=== PATIENT | female | born 1995 | race Caucasian/White ===

== ENCOUNTER 2020-12-26 20:30 | Emergency (ER) | payer BC ==
[~2020-12-26] VITALS: Ht 142.2 cm; Wt 58.0 kg
[2020-12-26] MEDS ORDERED: ONDANSETRON 4MG ODT PO STA (23:36)
[2020-12-26] MEDS ORDERED: HYDROCODONE/ACETAMINOPHEN 5/325MG TABLET PO STA (23:36)
[2020-12-26 23:52] LABS: CLARITY URINE CLEAR (CLEAR); COLOR URINE YELLOW (YELLOW); KETONES URINE TRACE (NEGATIVE); LEUKOCYTE ESTERASE URINE NEGATIVE (NEGATIVE); NITRITE URINE NEGATIVE (NEGATIVE); OCCULT BLOOD URINE NEGATIVE (NEGATIVE); PROTEIN URINE NEGATIVE (NEGATIVE); SPECIFIC GRAVITY URINE 1.025 (1.005-1.030)
[2020-12-27 00:09] LABS: BASOPHILS % 0.4 % (0.0-2.0); EOSINOPHILS % 2.7 % (0.0-5.0); HEMOGLOBIN. 11.2 g/dL (12.0-16.0); LYMPHOCYTES % 32.2 % (20.0-50.0); MEAN CORPUSCULAR HEMOGLOBIN 30.7 pg (28.0-32.0); MEAN CORPUSCULAR VOLUME 87.8 fL (81.0-99.0); MEAN PLATELET VOLUME 7.6 fl (7.4-10.4); MONOCYTES % 12.3 % (2.0-8.0); NEUTROPHILS % 52.4 % (40.0-76.0); PLATELET 307 x1000/uL (130-400); RED BLOOD CELL COUNT 3.64 mill/uL (4.2-5.4); RED CELL DISTRIBUTION WIDTH 12.3 % (11.6-14.6)
[2020-12-27 00:12] LABS: CHLORIDE 109 mEq/L (98-107)
[2020-12-27 00:32] LABS: HCG SCREEN NEGATIVE
[2020-12-27] MEDS ORDERED: IBUP-2028 MT (04:24)
[2020-12-27 04:27] VITALS: BP 132/67
== END 2020-12-27 04:31 | disposition home or self-care (01) ==
LOC: ER 20:35
DX: R10.9 Unspecified abdominal pain (principal); N83.209 Unspecified ovarian cyst, unspecified side
CPT/HCPCS: 36415; 76705; 76830; 76856; 80053; 81003; 83690; 84702; 84703; 85025; 99285; Q0162